=== PATIENT | female | born 1975 | race Caucasian/White ===

== ENCOUNTER → 2020-10-31 | Outpatient (CLI) | payer BC | LOC: MAMO 15:27 | DX: Z12.31 Encounter for screening mammogram for malignant neoplasm of breast (principal) | CPT/HCPCS: 77063; 77067 ==

== ENCOUNTER → 2021-11-12 | Outpatient (CLI) | payer BC | LOC: EXRD 11:00 | DX: H11.30 Conjunctival hemorrhage, unspecified eye (principal) | CPT/HCPCS: 93971 ==